=== PATIENT | male | born 1995 | race Caucasian/White ===

== ENCOUNTER 2022-07-07 17:01 | Emergency (ER) | payer OTHER ==
[2022-07-07 17:10] VITALS: TEMP 97.6
[2022-07-07] MEDS ORDERED: SODIUM CHLORIDE 0.9% 1,000 ML IV STA ×2 (20:05)
--- NOTE | 2022-07-07 20:49 | ED ---
General Adult HPI - General Source: patient Mode of arrival: ambulatory Limitations: no limitations <Dev Rasmussen - Last Filed: 07/07/22 20:46> - General Source: RN notes reviewed, old records reviewed <Martin Avendano - Last Filed: 07/07/22 22:27> - General Chief complaint: Abdominal Pain Stated complaint: NVD, weakness Time Seen by Provider: 07/07/22 19:52 - History of Present Illness Initial comments: This 27-year-old male presents with a complaint of some lightheadedness or dizziness present for the last 1 month. He states that it is worse when he stands up. It seems worse over the last 1 day. He had to call in to work today because it was so severe. He also complains of generalized weakness. He denies any fevers or chills. There is no cough or shortness of breath. He states that he has chronic diarrhea which essentially is unchanged. He states that he has been having blood in his stool for the past couple of months. This is a mild amount of bright red blood per rectum. He followed up with his doctor and they prescribed him a rectal cream which has not helped any great degree over the past couple of weeks. He has never had a colonoscopy. He has had occasional nausea but no vomiting. He has been able to eat fairly decently. He had some left sided abdominal pain earlier today but he has none currently and has been not had any abdominal pain previously. He denies any fevers or chills. No other complaints or modifying factors. (Dev Rasmussen) - Related Data Allergies Allergy/AdvReac Type Severity Reaction Status Date / Time No Known Allergies Allergy Verified 07/07/22 17:09 Review of Systems ROS Other: All systems not noted in ROS Statement are negative. <Dev Rasmussen - Last Filed: 07/07/22 20:46> ROS Other: All systems not noted in ROS Statement are negative. <Martin Avendano - Last Filed: 07/07/22 22:27> ROS Statement: Those systems with pertinent positive or pertinent negative responses have been documented in the HPI. Past Medical History Past Medical History: Asthma, GERD/Reflux History of Any Multi-Drug Resistant Organisms: None Reported Past Surgical History: No Surgical Hx Reported Past Psychological History: Anxiety, Depression Smoking Status: Never smoker Past Alcohol Use History: Occasional Past Drug Use History: Marijuana <Dev Rasmussen - Last Filed: 07/07/22 20:46> General Exam Limitations: no limitations <Dev Rasmussen - Last Filed: 07/07/22 20:46> General appearance: alert, in no apparent distress Head exam: Present: atraumatic, normocephalic, normal inspection Eye exam: Present: normal appearance, PERRL, EOMI. Absent: scleral icterus, conjunctival injection, periorbital swelling ENT exam: Present: normal exam, mucous membranes moist Neck exam: Present: normal inspection. Absent: tenderness, meningismus, lymphadenopathy Respiratory exam: Present: normal lung sounds bilaterally. Absent: respiratory distress, wheezes, rales, rhonchi, stridor Cardiovascular Exam: Present: regular rate, normal rhythm, normal heart sounds. Absent: systolic murmur, diastolic murmur, rubs, gallop, clicks GI/Abdominal exam: Present: soft, normal bowel sounds. Absent: distended, tenderness, guarding, rebound, rigid Extremities exam: Present: normal inspection, full ROM, normal capillary refill. Absent: tenderness, pedal edema, joint swelling, calf tenderness Back exam: Present: normal inspection Neurological exam: Present: alert, oriented X3, CN II-XII intact Psychiatric exam: Present: normal affect, normal mood Skin exam: Present: warm, dry, intact, normal color. Absent: rash <Martin Avendano - Last Filed: 07/07/22 22:27> - General Exam Comments Initial Comments: GENERAL: The patient is well nourished and well hydrated. VITAL SIGNS: Heart rate, blood pressure, respiratory rate reviewed as recorded in nurse's notes. EYES: Pupils are round and reactive. Extraocular movements are intact. No conjunctival / lid redness or swelling. ENT: No external evidence of injury, swelling, or ecchymosis. Airway is patent. Throat is clear. NECK: Nontender. No swelling or evidence of injury. No subcutaneous emphysema. Trachea is midline. No thyroid mass. HEART: Regular rate and rhythm. Good peripheral pulses. LUNGS/CHEST: Breath sounds clear and equal bilaterally. No rales, rhonchi, or wh eezes. No ecchymosis, subcutaneous emphysema, or tenderness. ABDOMEN: Abdomen soft without tenderness. No palpable masses or organomegaly. No peritoneal signs. No abdominal wall swelling or ecchymosis. EXTREMITIES: No extremity tenderness. Normal muscle tone and function. No thoracolumbar tenderness. NEUROLOGIC: Sensation is grossly intact. Cranial nerve exam reveals face is symmetrical, tongue is midline, speech is clear. SKIN: No abrasions or ecchymosis is noted. No induration or masses noted. PSYCHIATRIC: Alert and oriented. Appropriate behavior and judgment. (Dev Rasmussen) Course <Martin Avendano - Last Filed: 07/07/22 22:27> Vital Signs 07/07/22 07/07/22 17:06 22:18 Temperature 97.6 F Pulse Rate 81 83 Respiratory 20 18 Rate Blood Pressure 128/84 117/67 O2 Sat by Pulse 98 98 Oximetry - Reevaluation(s) Reevaluation #1: 07/07/22 22:26 Medical record is reviewed (Martin Avendano) Reevaluation #2: 07/07/22 22:26 Patient informed results and questions have been answered (Martin Avendano) Medical Decision Making <Dev Rasmussen - Last Filed: 07/07/22 20:46> - Lab Data Result diagrams: 07/07/22 20:58 07/07/22 20:58 <Martin Avendano - Last Filed: 07/07/22 22:27> - Medical Decision Making The patient is seen and examined. Ample IV fluids are ordered. Laboratory is also ordered. (Dev Rasmussen) 27 male to the emergency department brought for evaluation of nausea vomiting and diarrhea. Patient has no fevers. Patient given symptomatically therapy lab values are normal feels better and can be discharged home (Martin Avendano) - Lab Data Lab Results 07/07/22 07/07/22 07/07/22 Range/Units 20:58 20:58 20:58 WBC 6.5 (3.8-10.6) k/uL RBC 5.35 (4.30-5.90) m/uL Hgb 15.6 (13.0-17.5) gm/dL Hct 46.9 (39.0-53.0) % MCV 87.7 (80.0-100.0) fL MCH 29.2 (25.0-35.0) pg MCHC 33.3 (31.0-37.0) g/dL RDW 12.5 (11.5-15.5) % Plt Count 265 (150-450) k/uL MPV 7.2 Neutrophils % 63 % Lymphocytes % 26 % Monocytes % 6 % Eosinophils % 3 % Basophils % 1 % Neutrophils # 4.1 (1.3-7.7) k/uL Lymphocytes # 1.7 (1.0-4.8) k/uL Monocytes # 0.4 (0-1.0) k/uL Eosinophils # 0.2 (0-0.7) k/uL Basophils # 0.1 (0-0.2) k/uL PT 10.3 (9.0-12.0) sec INR 0.9 (<1.2) APTT 25.5 (22.0-30.0) sec Sodium 141 (137-145) mmol/L Potassium 3.9 (3.5-5.1) mmol/L Chloride 105 (98-107) mmol/L Carbon Dioxide 22 (22-30) mmol/L Anion Gap 14 mmol/L BUN 12 (9-20) mg/dL Creatinine 0.80 (0.66-1.25) mg/dL Est GFR (CKD-EPI)AfAm >90 (>60 ml/min/1.73 sqM) Est GFR (CKD-EPI)NonAf >90 (>60 ml/min/1.73 sqM) Glucose 109 H (74-99) mg/dL Calcium 9.2 (8.4-10.2) mg/dL Total Bilirubin 0.7 (0.2-1.3) mg/dL AST 33 (17-59) U/L ALT 34 (4-49) U/L Alkaline Phosphatase 69 (38-126) U/L Total Protein 7.5 (6.3-8.2) g/dL Albumin 4.7 (3.5-5.0) g/dL Coronavirus (PCR) (Not Detectd) Influenza Type A RNA (Not Detectd) Influenza Type B (PCR) (Not Detectd) 07/07/22 07/07/22 Range/Units 21:36 21:36 WBC (3.8-10.6) k/uL RBC (4.30-5.90) m/uL Hgb (13.0-17.5) gm/dL Hct (39.0-53.0) % MCV (80.0-100.0) fL MCH (25.0-35.0) pg MCHC (31.0-37.0) g/dL RDW (11.5-15.5) % Plt Count (150-450) k/uL MPV Neutrophils % % Lymphocytes % % Monocytes % % Eosinophils % % Basophils % % Neutrophils # (1.3-7.7) k/uL Lymphocytes # (1.0-4.8) k/uL Monocytes # (0-1.0) k/uL Eosinophils # (0-0.7) k/uL Basophils # (0-0.2) k/uL PT (9.0-12.0) sec INR (<1.2) APTT (22.0-30.0) sec Sodium (137-145) mmol/L Potassium (3.5-5.1) mmol/L Chloride (98-107) mmol/L Carbon Dioxide (22-30) mmol/L Anion Gap mmol/L BUN (9-20) mg/dL Creatinine (0.66-1.25) mg/dL Est GFR (CKD-EPI)AfAm (>60 ml/min/1.73 sqM) Est GFR (CKD-EPI)NonAf (>60 ml/min/1.73 sqM) Glucose (74-99) mg/dL Calcium (8.4-10.2) mg/dL Total Bilirubin (0.2-1.3) mg/dL AST (17-59) U/L ALT (4-49) U/L Alkaline Phosphatase (38-126) U/L Total Protein (6.3-8.2) g/dL Albumin (3.5-5.0) g/dL Coronavirus (PCR) Not Detected (Not Detectd) Influenza Type A RNA Not Detected (Not Detectd) Influenza Type B (PCR) Not Detected (Not Detectd) Disposition <Dev Rasmussen - Last Filed: 07/07/22 20:46> Is patient prescribed a controlled substance at d/c from ED?: No Time of Disposition: 22:30 <Martin Avendano - Last Filed: 07/07/22 22:27> Clinical Impression: Dizziness, Rectal bleeding, Fatigue, Chronic diarrhea, Nausea, Myalgia Disposition: HOME SELF-CARE Condition: Good Instructions (If sedation given, give patient instructions): Gastroenteritis (ED) Referrals: Geraldine Polk MD [Primary Care Provider] - 1-2 days
[2022-07-07 21:06] LABS: Basophils # (A) 0.1 k/uL (0-0.2); Basophils % (A) 1 %; Eosinophils # (A) 0.2 k/uL (0-0.7); Eosinophils % (A) 3 %; HCT 46.9 % (39.0-53.0); HGB 15.6 gm/dL (13.0-17.5); Lymphocytes # (A) 1.7 k/uL (1.0-4.8); Lymphocytes % (A) 26 %; MCH 29.2 pg (25.0-35.0); MCHC 33.3 g/dL (31.0-37.0); MCV 87.7 fL (80.0-100.0); Mean Platelet Volume 7.2; Monocytes # (A) 0.4 k/uL (0-1.0); Monocytes % (A) 6 %; Neutrophils # (A) 4.1 k/uL (1.3-7.7); Neutrophils % (A) 63 %; Platelet Count 265 k/uL (150-450); RBC 5.35 m/uL (4.30-5.90); RDW 12.5 % (11.5-15.5); WBC 6.5 k/uL (3.8-10.6)
[2022-07-07 21:16] LABS: INR 0.9 (<1.2); Partial Thromboplastin Time 25.5 sec (22.0-30.0); Prothrombin Time 10.3 sec (9.0-12.0)
[2022-07-07 21:21] LABS: ALT 34 U/L (4-49); AST 33 U/L (17-59); African American GFR (CKD) >90 (>60 ml/min/1.73 sqM); Albumin 4.7 g/dL (3.5-5.0); Alkaline Phosphatase 69 U/L (38-126); Anion Gap 14 mmol/L; Blood Urea Nitrogen 12 mg/dL (9-20); Calcium 9.2 mg/dL (8.4-10.2); Carbon Dioxide 22 mmol/L (22-30); Chloride 105 mmol/L (98-107); Glucose 109 mg/dL (74-99); Non-African American GFR(CKD) >90 (>60 ml/min/1.73 sqM); Potassium 3.9 mmol/L (3.5-5.1); Sodium 141 mmol/L (137-145); Total Bilirubin 0.7 mg/dL (0.2-1.3); Total Protein 7.5 g/dL (6.3-8.2)
[2022-07-07] MEDS ORDERED: KETOROLAC 15 MG/ML 1 ML VIAL IVP STA (21:58)
[2022-07-07] MEDS ORDERED: ONDANSETRON 4 MG/2 ML VIAL IVP STA (21:58)
[2022-07-07 22:19] VITALS: BP 117/67; PULSE 83; RESP 18
[2022-07-07] MEDS ORDERED: ONDANSETRON 4 MG ODT STARTER PACK 2 TAB BTL PO STA (22:25)
[2022-07-07] MEDS ORDERED: DIPHENOX-ATROP STARTER PACK 8 TAB BTL PO STA (22:25)
== END 2022-07-07 23:22 | disposition home or self-care (01) ==
LOC: EC 17:01
DX: U07.1 COVID-19 (principal); R42 Dizziness and giddiness; K62.5 Hemorrhage of anus and rectum; R11.2 Nausea with vomiting, unspecified; R53.1 Weakness; R19.7 Diarrhea, unspecified; J45.909 Unspecified asthma, uncomplicated
CPT/HCPCS: 36415; 80053; 85025; 85610; 85730; 87502; 87635; 99284; 96374; 96361; 96375; J2405; J1885; S0119